=== PATIENT | male | born 1945 ===

== ENCOUNTER 2022-10-14 15:35 | Inpatient (IN) | payer OTHER ==
[~2022-10-14] VITALS: Ht 175.3 cm; Wt 68.0 kg
[2022-10-14 16:34] LABS: COVID AG,FIA SOURCE NASOPHARYNGEAL
[2022-10-14 16:38] LABS: APPEARANCE,URINE CLEAR (CLEAR); BILIRUBIN,URINE NEGATIVE (NEGATIVE); GLUCOSE, URINE (UA) >=1000 mg/dL (NEGATIVE); KETONES,URINE 40-60 mg/dL (NEGATIVE); LEUKOCYTE ESTERASE ,URINE NEGATIVE (NEGATIVE); NITRATE,URINE NEGATIVE (NEGATIVE); OCCULT BLOOD,URINE MODERATE (NEGATIVE); PH,URINE 5.5 (5.0-8.0); PROTEIN,URINE 30-70 mg/dL (NEGATIVE); SPECIFIC GRAVITIY, URINE 1.021 (1.003-1.030); UROBILINOGEN,URINE <=1.0 mg/dL (<=1.0)
[2022-10-14 16:39] LABS: BASOPHILS % (AUTO) 0.1 % (0.0-2.0); EOSINOPHILS % (AUTO) 0 % (1.0-6.0); HEMATOCRIT 48.5 % (41-53); HEMOGLOBIN 15.6 g/dL (13.5-17.5); LYMPHOCYTES # (AUTO) 0.3 K/uL (1.0-4.8); LYMPHOCYTES % (AUTO) 2.8 % (22.0-44.0); MEAN CORPUSCULAR HEMOGLOBIN 31.8 pg (26.0-34.0); MEAN CORPUSCULAR HGB CONC 32.3 G/dL (31.0-37.0); MEAN CORPUSCULAR VOLUME 98 fL (80-100); MONOCYTES # (AUTO) 0.7 K/uL (0.1-1.0); PLATELET COUNT (AUTO) 241 K/uL (150-450); RED BLOOD CELL COUNT(AUTO) 4.93 MIL/uL (4.50-5.90); RED CELL DISTRIBUTION WIDTH 14.9 % (11.5-14.5)
[2022-10-14 16:41] LABS: NEUTROPHILS % (AUTO) 90.1 % (40.0-70.0)
[2022-10-14 16:44] LABS: AMPHET/METH SCREEN,URINE NEGATIVE (NEGATIVE); BARBITURATE SCREEN, URINE NEGATIVE (NEGATIVE); BENZODIAZEPINES SCREEN,URINE NEGATIVE (NEGATIVE); CANNABINOID SCREEN,URINE NEGATIVE (NEGATIVE); COCAINE SCREEN,URINE NEGATIVE (NEGATIVE); METHADONE SCREEN, URINE NEGATIVE (NEGATIVE); OPIATE SCREEN,URINE NEGATIVE (NEGATIVE); PHENCYCLIDINE SCREEN,URINE NEGATIVE (NEGATIVE)
[2022-10-14 16:48] LABS: INR 1.1 (0.9-1.1); PROTHROMBIN TIME 11.4 SEC (9.4-11.6)
[2022-10-14 16:59] LABS: LACTIC ACID 1.8 mmol/L (0.4-2.0)
[2022-10-14 17:03] LABS: BACTERIA,URINE Few /HPF (None Seen); FINE GRANULAR CASTS,URINE 0-2 /LPF (None Seen); SQUAMOUS EPITHELIAL CELL,UR Few /LPF (None Seen); WBC,URINE 0-2 /HPF (0-5)
[2022-10-14 17:07] LABS: AMMONIA < 10 umol/L (11-32)
[2022-10-14 17:08] LABS: ALBUMIN 3.4 g/dL (3.4-5.0); BILIRUBIN,TOTAL 0.7 mg/dL (0.1-1.0); CALCIUM, TOTAL 9.6 mg/dL (8.8-10.5); CREATININE 2.34 mg/dL (0.60-1.30); MAGNESIUM 3.1 mg/dL (1.80-2.40); PHOSPHORUS 6.1 mg/dL (2.5-4.9); POTASSIUM 3.2 mmol/L (3.5-5.1); TOTAL PROTEIN, SERUM 7.4 g/dL (6.4-8.2)
[2022-10-14] MEDS ORDERED: SODIUM CHLORIDE 0.9% 1,000 ML IV ONE (17:15)
[2022-10-14] MEDS ORDERED: POTASSIUM CHL 10 MEQ/WATER 50 ML IV SCH (17:15)
[2022-10-14] MEDS ORDERED: POTASSIUM CHLORIDE 40 MEQ in SODIUM CHLORIDE 0.9% 1,000 ML IV ONE (17:30)
[2022-10-14 17:50] LABS: ACETONE,BLOOD 1:16 (NEGATIVE)
[2022-10-14 18:04] LABS: ACETAMINOPHEN < 2 mcg/mL (10-30)
[2022-10-14 18:21] LABS: SALICYLATE 3.7 mg/dL (2.8-20.0)
[2022-10-14] MEDS ORDERED: ONDANSETRON HCL 4 MG/2 ML VIAL IVP PRN (18:45)
[2022-10-14] MEDS ORDERED: POTASSIUM CHLORIDE 40 MEQ in SODIUM CHLORIDE 0.45% 1,000 ML IV PRN ×2 (18:45→19:00)
[2022-10-14] MEDS ORDERED: POTASSIUM CHL 20 MEQ/0.45% NS 1,000 ML IV PRN ×2 (18:45→19:00)
[2022-10-14] MEDS ORDERED: SODIUM CHLORIDE 0.45% 1,000 ML IV PRN ×2 (18:45→19:00)
[2022-10-14] MEDS ORDERED: DEXTROSE 50%-WATER 25 GM/50 ML SYRINGE IVP PRN ×2 (18:45→19:00)
[2022-10-14] MEDS ORDERED: SODIUM CHLORIDE 0.9% 1,000 ML IV SCH ×2 (18:45→19:00)
[2022-10-14] MEDS ORDERED: INSULIN REGULAR, HUMAN 100 UNITS/ML IVP PRN (19:00)
[2022-10-14] MEDS ORDERED: DEXTROSE 5%-0.45% SODIUM CHL 1,000 ML IV PRN (19:00)
[2022-10-14] MEDS ORDERED: INSULIN REGULAR, HUMAN 100 UNITS in SODIUM CHLORIDE 0.9% 99 ML IV PRN ×2 (19:00)
[2022-10-14 20:19] LABS: BASOPHILS % (AUTO) 0.4 % (0.0-2.0); EOSINOPHILS % (AUTO) 0 % (1.0-6.0); HEMATOCRIT 46.2 % (41-53); HEMOGLOBIN 15.1 g/dL (13.5-17.5); LYMPHOCYTES # (AUTO) 0.3 K/uL (1.0-4.8); LYMPHOCYTES % (AUTO) 2.7 % (22.0-44.0); MEAN CORPUSCULAR HEMOGLOBIN 32.1 pg (26.0-34.0); MEAN CORPUSCULAR HGB CONC 32.6 G/dL (31.0-37.0); MEAN CORPUSCULAR VOLUME 99 fL (80-100); MONOCYTES # (AUTO) 0.8 K/uL (0.1-1.0); MONOCYTES % (AUTO) 7.7 % (2.0-9.0); NEUTROPHILS # (AUTO) 9.2 K/uL (1.8-7.7); NEUTROPHILS % (AUTO) 89.2 % (40.0-70.0); PLATELET COUNT (AUTO) 220 K/uL (150-450); RED BLOOD CELL COUNT(AUTO) 4.69 MIL/uL (4.50-5.90); RED CELL DISTRIBUTION WIDTH 14.7 % (11.5-14.5)
[2022-10-14] MEDS ORDERED: VANCOMYCIN 1GM/WATER(PEG/NADA) 200 ML IV PRN (20:30)
[2022-10-14] MEDS ORDERED: INSULIN REGULAR, HUMAN 100 UNITS/ML IVP ONE (20:30)
[2022-10-14] MEDS: INSULIN REGULAR, HUMAN 100 UNITS in SODIUM CHLORIDE 0.9% 99 ML IV PRN ×2 (20:44)
[2022-10-14 20:46] LABS: GLUCOSE,POINT OF CARE 420 MG/DL (70-110)
[2022-10-14 20:54] LABS: ABG BASE EXCESS -17.8 mmol/L (-2.0-3.0); ABG CARBOXYHEMOGLOBIN 0.3 % (0.0-1.5); ABG HCO3 12.3 mmol/L (22.0-26.0); ABG METHEMOGLOBIN 0.3 % (0.0-1.5); ABG OXYGEN CONTENT 20.7 mL/dL (15.0-23.0); ABG OXYHEMOGLOBIN 96.4 % (94.0-100.0); ABG PCO2 32 mmHg (35-45); ABG TOTAL HEMOGLOBIN 15.2 G/dL (12.0-18.0); PO2, ARTERIAL BG 101.3 mmHg (66.0-74.0); SOURCE, BLOOD GAS ARTERIAL; TEMPERATURE, FAHRENHEIT, BG 98.6 FAHREN (96.0-98.6)
[2022-10-14 20:59] LABS: ABG PH 7.152 (7.35-7.450); SITE, BLOOD GAS LFT RADIAL
[2022-10-14] MEDS: DOCUSATE SODIUM 100 MG CAPSULE PO SCH (21:00)
[2022-10-14] MEDS ORDERED: VANCOMYCIN 1GM/WATER(PEG/NADA) 200 ML IV ONE (21:00)
[2022-10-14 21:16] LABS: CREATININE 2.29 mg/dL (0.60-1.30); POTASSIUM 3.8 mmol/L (3.5-5.1)
[2022-10-14] MEDS ORDERED: *CLINICAL-CEFEPIME DOSING CLINICAL ONE (21:45)
[2022-10-14] MEDS: INSULIN REGULAR, HUMAN 100 UNITS/ML IVP PRN ×2 (22:33→23:25)
[2022-10-14] MEDS ORDERED: CEFEPIME HCL 1 GM in DEXTROSE 5%-WATER 50 ML IV ONE (23:00)
[2022-10-14] MEDS ORDERED: SODIUM CHLORIDE 0.9% 250 ML IV ONE (23:01)
[2022-10-14 23:21] LABS: GLUCOSE,POINT OF CARE 376 MG/DL (70-110)
[2022-10-15] MEDS ORDERED: ASPIRIN 300 MG RECTAL SUPPOSITORY PR ONE
[2022-10-15] MEDS ORDERED: HEPARIN SODIUM,PORCINE 5,000 UNITS/ML VIAL IVP PRN ×2
[2022-10-15] MEDS ORDERED: HEPARIN SODIUM,PORCINE 5,000 UNITS/ML VIAL IVP ONE
[2022-10-15] MEDS: DEXTROSE 5%-0.45% SODIUM CHL 1,000 ML IV PRN ×2 (00:27→01:14)
[2022-10-15] MEDS: HEPARIN SODIUM 25000 UNITS/D5W 250 ML IV PRN ×3 (01:12→20:31)
[2022-10-15 01:18] LABS: BASOPHILS % (AUTO) 0.2 % (0.0-2.0); EOSINOPHILS % (AUTO) 0 % (1.0-6.0); HEMATOCRIT 43.5 % (41-53); HEMOGLOBIN 14.5 g/dL (13.5-17.5); LYMPHOCYTES # (AUTO) 0.4 K/uL (1.0-4.8); LYMPHOCYTES % (AUTO) 3.4 % (22.0-44.0); MEAN CORPUSCULAR HGB CONC 33.2 G/dL (31.0-37.0); MEAN CORPUSCULAR VOLUME 96 fL (80-100); MONOCYTES # (AUTO) 0.6 K/uL (0.1-1.0); MONOCYTES % (AUTO) 4.5 % (2.0-9.0); NEUTROPHILS # (AUTO) 11.6 K/uL (1.8-7.7); PLATELET COUNT (AUTO) 194 K/uL (150-450); RED BLOOD CELL COUNT(AUTO) 4.52 MIL/uL (4.50-5.90); RED CELL DISTRIBUTION WIDTH 14.4 % (11.5-14.5)
[2022-10-15 01:20] LABS: NEUTROPHILS % (AUTO) 91.9 % (40.0-70.0)
[2022-10-15 01:30] LABS: CREATININE 2.32 mg/dL (0.60-1.30); POTASSIUM 3.1 mmol/L (3.5-5.1)
[2022-10-15 01:33] LABS: INR 1.1 (0.9-1.1); PROTHROMBIN TIME 11.9 SEC (9.4-11.6)
[2022-10-15 02:21] LABS: GLUCOSE,POINT OF CARE 283 MG/DL (70-110)
[2022-10-15 02:21] LABS: GLUCOSE,POINT OF CARE 167 MG/DL (70-110)
[2022-10-15 02:21] LABS: GLUCOSE,POINT OF CARE 221 MG/DL (70-110)
[2022-10-15 04:26] LABS: GLUCOSE,POINT OF CARE 119 MG/DL (70-110)
[2022-10-15 04:26] LABS: GLUCOSE,POINT OF CARE 137 MG/DL (70-110)
[2022-10-15 04:31] LABS: GLUCOSE,POINT OF CARE 80 MG/DL (70-110)
[2022-10-15 05:55] LABS: BASOPHILS % (AUTO) 0.1 % (0.0-2.0); EOSINOPHILS % (AUTO) 0.1 % (1.0-6.0); HEMATOCRIT 43.8 % (41-53); HEMOGLOBIN 14.3 g/dL (13.5-17.5); LYMPHOCYTES # (AUTO) 0.3 K/uL (1.0-4.8); LYMPHOCYTES % (AUTO) 1.9 % (22.0-44.0); MEAN CORPUSCULAR HEMOGLOBIN 31.4 pg (26.0-34.0); MEAN CORPUSCULAR HGB CONC 32.6 G/dL (31.0-37.0); MEAN CORPUSCULAR VOLUME 96 fL (80-100); MONOCYTES # (AUTO) 1.8 K/uL (0.1-1.0); MONOCYTES % (AUTO) 11.4 % (2.0-9.0); NEUTROPHILS # (AUTO) 13.4 K/uL (1.8-7.7); PLATELET COUNT (AUTO) 196 K/uL (150-450); RED BLOOD CELL COUNT(AUTO) 4.55 MIL/uL (4.50-5.90); RED CELL DISTRIBUTION WIDTH 14.3 % (11.5-14.5)
[2022-10-15 06:07] LABS: ALBUMIN 2.9 g/dL (3.4-5.0); BILIRUBIN,TOTAL 0.4 mg/dL (0.1-1.0); CREATININE 2.5 mg/dL (0.60-1.30); MAGNESIUM 2.7 mg/dL (1.80-2.40); PHOSPHORUS 3.6 mg/dL (2.5-4.9); POTASSIUM 3.6 mmol/L (3.5-5.1); TOTAL PROTEIN, SERUM 6.2 g/dL (6.4-8.2)
[2022-10-15 06:14] LABS: NEUTROPHILS % (AUTO) 86.5 % (40.0-70.0)
[2022-10-15 06:36] LABS: GLUCOSE,POINT OF CARE 77 MG/DL (70-110)
[2022-10-15 06:36] LABS: GLUCOSE,POINT OF CARE 102 MG/DL (70-110)
[2022-10-15 06:36] LABS: GLUCOSE,POINT OF CARE 103 MG/DL (70-110)
[2022-10-15 07:56] LABS: GLUCOSE,POINT OF CARE 149 MG/DL (70-110)
[2022-10-15 08:00] VITALS: BP 124/71
[2022-10-15] MEDS ORDERED: VANCOMYCIN HCL 500 MG in DEXTROSE 5%-WATER 100 ML IV ONE (08:00)
[2022-10-15] MEDS ORDERED: HEPARIN SODIUM,PORCINE 5,000 UNITS/ML VIAL SQ SCH (08:00)
[2022-10-15 08:35] LABS: CALCIUM, TOTAL 8.8 mg/dL (8.8-10.5); CREATININE 2.57 mg/dL (0.60-1.30); POTASSIUM 3.8 mmol/L (3.5-5.1)
[2022-10-15] MEDS: DOCUSATE SODIUM 100 MG CAPSULE PO SCH ×2 (09:00→20:10)
[2022-10-15] MEDS: ASPIRIN 81 MG CHEWABLE TABLET PO SCH (09:00)
[2022-10-15] MEDS: METOPROLOL TARTRATE 25 MG TABLET PO SCH ×2 (09:00→20:10)
[2022-10-15] MEDS ORDERED: SODIUM CHLORIDE 0.45% 500 ML IV ONE (10:00)
[2022-10-15 12:00] VITALS: BP 106/60
[2022-10-15 12:45] LABS: CALCIUM, TOTAL 8.8 mg/dL (8.8-10.5); CREATININE 2.8 mg/dL (0.60-1.30); MAGNESIUM 2.7 mg/dL (1.80-2.40); PHOSPHORUS 4.7 mg/dL (2.5-4.9); POTASSIUM 4.2 mmol/L (3.5-5.1)
[2022-10-15] MEDS: INSULIN REGULAR, HUMAN 100 UNITS in SODIUM CHLORIDE 0.9% 99 ML IV PRN ×2 (14:08)
[2022-10-15 16:00] VITALS: BP 124/71
[2022-10-15 16:52] LABS: CALCIUM, TOTAL 8.4 mg/dL (8.8-10.5); CREATININE 3.26 mg/dL (0.60-1.30); POTASSIUM 4.6 mmol/L (3.5-5.1)
[2022-10-15] MEDS ORDERED: DEXTROSE 50%-WATER 25 GM/50 ML SYRINGE IVP PRN (17:30)
[2022-10-15 19:26] LABS: GLUCOSE,POINT OF CARE 90 MG/DL (70-110)
[2022-10-15 19:26] LABS: GLUCOSE,POINT OF CARE 148 MG/DL (70-110)
[2022-10-15 19:26] LABS: GLUCOSE,POINT OF CARE 60 MG/DL (70-110)
[2022-10-15 19:26] LABS: GLUCOSE,POINT OF CARE 103 MG/DL (70-110)
[2022-10-15 19:26] LABS: GLUCOSE,POINT OF CARE 143 MG/DL (70-110)
[2022-10-15 19:26] LABS: GLUCOSE,POINT OF CARE 133 MG/DL (70-110)
[2022-10-15 19:26] LABS: GLUCOSE,POINT OF CARE 126 MG/DL (70-110)
[2022-10-15 19:26] LABS: GLUCOSE,POINT OF CARE 55 MG/DL (70-110)
[2022-10-15 19:31] LABS: GLUCOSE,POINT OF CARE 101 MG/DL (70-110)
[2022-10-15 19:31] LABS: GLUCOSE,POINT OF CARE 134 MG/DL (70-110)
[2022-10-15 20:00] VITALS: BP 124/70
[2022-10-15] MEDS: ATORVASTATIN CALCIUM 40 MG TABLET PO SCH ×2 (20:10)
[2022-10-15] MEDS: SODIUM CHLORIDE 0.45% 1,000 ML IV SCH (20:26)
[2022-10-15] MEDS: INSULIN GLARGINE,HUM.REC.ANLOG 100 UNITS/ML SQ SCH (21:01)
[2022-10-15 22:17] LABS: CALCIUM, TOTAL 8.6 mg/dL (8.8-10.5); CREATININE 3.13 mg/dL (0.60-1.30); POTASSIUM 4.9 mmol/L (3.5-5.1)
[2022-10-15 23:16] LABS: GLUCOSE,POINT OF CARE 132 MG/DL (70-110)
[2022-10-15 23:16] LABS: GLUCOSE,POINT OF CARE 121 MG/DL (70-110)
[2022-10-15] MEDS: CEFEPIME HCL 1 GM in DEXTROSE 5%-WATER 50 ML IV SCH (23:30)
[2022-10-16] VITALS: BP 117/57
[2022-10-16] MEDS: INSULIN LISPRO 100 UNITS/ML SQ PRN ×5 (00:31→18:44)
[2022-10-16] MEDS: SODIUM CHLORIDE 0.45% 1,000 ML IV SCH ×2 (03:04→16:35)
[2022-10-16 03:16] LABS: GLUCOSE,POINT OF CARE 151 MG/DL (70-110)
[2022-10-16 04:00] VITALS: BP 121/79
[2022-10-16 04:16] LABS: GLUCOSE,POINT OF CARE 174 MG/DL (70-110)
[2022-10-16] MEDS ORDERED: SODIUM CHLORIDE 0.9% 250 ML IV ONE (04:40)
[2022-10-16 06:10] LABS: ALBUMIN 2.4 g/dL (3.4-5.0); BILIRUBIN,TOTAL 0.4 mg/dL (0.1-1.0); CALCIUM, TOTAL 8.8 mg/dL (8.8-10.5); CREATININE 2.72 mg/dL (0.60-1.30); MAGNESIUM 2.6 mg/dL (1.80-2.40); PHOSPHORUS 2.3 mg/dL (2.5-4.9); POTASSIUM 4.3 mmol/L (3.5-5.1); VANCOMYCIN,RANDOM 14.1 mcg/mL (25.0-50.0)
[2022-10-16 08:00] VITALS: BP 131/54
[2022-10-16 08:21] LABS: GLUCOSE,POINT OF CARE 128 MG/DL (70-110)
[2022-10-16] MEDS: DOCUSATE SODIUM 100 MG CAPSULE PO SCH ×2 (09:00→21:00)
[2022-10-16] MEDS: ASPIRIN 81 MG CHEWABLE TABLET PO SCH (09:00)
[2022-10-16] MEDS: METOPROLOL TARTRATE 25 MG TABLET PO SCH ×2 (09:00→21:00)
[2022-10-16] MEDS: VANCOMYCIN HCL 500 MG in DEXTROSE 5%-WATER 100 ML IV SCH (11:58)
[2022-10-16 12:00] VITALS: BP 126/50
[2022-10-16 12:11] LABS: GLUCOSE,POINT OF CARE 187 MG/DL (70-110)
[2022-10-16 16:00] VITALS: BP 106/52
[2022-10-16 17:21] LABS: GLUCOSE,POINT OF CARE 177 MG/DL (70-110)
[2022-10-16 17:39] LABS: CALCIUM, TOTAL 8.5 mg/dL (8.8-10.5); CREATININE 2.63 mg/dL (0.60-1.30); MAGNESIUM 2.5 mg/dL (1.80-2.40); PHOSPHORUS 4.2 mg/dL (2.5-4.9)
[2022-10-16 20:00] VITALS: BP 129/64
[2022-10-16] MEDS: ATORVASTATIN CALCIUM 40 MG TABLET PO SCH (21:00)
[2022-10-16] MEDS: INSULIN GLARGINE,HUM.REC.ANLOG 100 UNITS/ML SQ SCH (22:00)
[2022-10-16 22:16] LABS: GLUCOSE,POINT OF CARE 149 MG/DL (70-110)
[2022-10-16 23:11] LABS: GLUCOSE,POINT OF CARE 158 MG/DL (70-110)
[2022-10-16] MEDS: CEFEPIME HCL 1 GM in DEXTROSE 5%-WATER 50 ML IV SCH (23:56)
[2022-10-17] VITALS (11 sets, daily range): BP systolic 82–117; BP diastolic 37–70
[2022-10-17] MEDS: INSULIN LISPRO 100 UNITS/ML SQ PRN ×2 (00:10→14:48)
[2022-10-17] MEDS: SODIUM CHLORIDE 0.45% 1,000 ML IV SCH ×2 (01:37→17:21)
[2022-10-17 05:41] LABS: GLUCOSE,POINT OF CARE 185 MG/DL (70-110)
[2022-10-17 05:41] LABS: GLUCOSE,POINT OF CARE 177 MG/DL (70-110)
[2022-10-17 06:00] LABS: BASOPHILS % (AUTO) 0.2 % (0.0-2.0); EOSINOPHILS % (AUTO) 0 % (1.0-6.0); HEMATOCRIT 39.8 % (41-53); HEMOGLOBIN 12.5 g/dL (13.5-17.5); LYMPHOCYTES # (AUTO) 0.3 K/uL (1.0-4.8); LYMPHOCYTES % (AUTO) 2.8 % (22.0-44.0); MEAN CORPUSCULAR HEMOGLOBIN 31.4 pg (26.0-34.0); MEAN CORPUSCULAR HGB CONC 31.4 G/dL (31.0-37.0); MEAN CORPUSCULAR VOLUME 100 fL (80-100); MONOCYTES # (AUTO) 0.6 K/uL (0.1-1.0); MONOCYTES % (AUTO) 4.6 % (2.0-9.0); NEUTROPHILS # (AUTO) 11.1 K/uL (1.8-7.7); PLATELET COUNT (AUTO) 132 K/uL (150-450); RED BLOOD CELL COUNT(AUTO) 3.98 MIL/uL (4.50-5.90); RED CELL DISTRIBUTION WIDTH 15.6 % (11.5-14.5)
[2022-10-17] MEDS ORDERED: SUCCINYLCHOLINE CHLORIDE 20 MG/ML 10 ML VIAL ONE (06:06)
[2022-10-17 06:07] LABS: NEUTROPHILS % (AUTO) 92.4 % (40.0-70.0)
[2022-10-17] MEDS ORDERED: NOREPINEPHRINE 8 MG/D5%-WATER 250 ML IV PRN (06:15)
[2022-10-17 06:25] LABS: CREATININE 3.26 mg/dL (0.60-1.30)
[2022-10-17 06:33] LABS: POTASSIUM 6.9 mmol/L (3.5-5.1)
[2022-10-17] MEDS ORDERED: INSULIN REGULAR, HUMAN 100 UNITS/ML IVP ONE (06:45)
[2022-10-17] MEDS ORDERED: SODIUM ZIRCONIUM CYCLOSILICATE 5 GM POWDER PACKET PO ONE (06:45)
[2022-10-17] MEDS ORDERED: DEXTROSE 50%-WATER 25 GM/50 ML SYRINGE IVP ONE (06:45)
[2022-10-17 06:59] LABS: PHOSPHORUS 9.7 mg/dL (2.5-4.9)
[2022-10-17] MEDS: PROPOFOL 1000 MG/ISO-OSM 100 ML IV PRN ×2 (08:36→20:38)
[2022-10-17] MEDS: DOCUSATE SODIUM 100 MG CAPSULE PO SCH ×2 (09:00→21:13)
[2022-10-17] MEDS: METOPROLOL TARTRATE 25 MG TABLET PO SCH ×2 (09:00→21:00)
[2022-10-17 09:49] LABS: CALCIUM, TOTAL 8.6 mg/dL (8.8-10.5); CREATININE 3.31 mg/dL (0.60-1.30); POTASSIUM 5.4 mmol/L (3.5-5.1)
[2022-10-17 09:55] LABS: BILIRUBIN,TOTAL 0.4 mg/dL (0.1-1.0); MAGNESIUM 2.7 mg/dL (1.80-2.40); TOTAL PROTEIN, SERUM 5.5 g/dL (6.4-8.2)
[2022-10-17 10:19] LABS: ABG BASE EXCESS -10.2 mmol/L (-2.0-3.0); ABG CARBOXYHEMOGLOBIN 0.3 % (0.0-1.5); ABG HCO3 17.1 mmol/L (22.0-26.0); ABG METHEMOGLOBIN 0.3 % (0.0-1.5); ABG OXYGEN CONTENT 18.5 mL/dL (15.0-23.0); ABG OXYGEN SATURATION 99.8 % (95.0-98.0); ABG OXYHEMOGLOBIN 99.2 % (94.0-100.0); ABG PCO2 35 mmHg (35-45); ABG PH 7.291 (7.35-7.450); ABG TOTAL HEMOGLOBIN 12.5 G/dL (12.0-18.0); PO2, ARTERIAL BG 397.5 mmHg (66.0-74.0); SOURCE, BLOOD GAS ARTERIAL; TEMPERATURE, FAHRENHEIT, BG 97.1 FAHREN (96.0-98.6)
[2022-10-17 10:21] LABS: O2 DEVICE,BLOOD GAS VENTILATOR (ROOM AIR); PEEP,BG 5 cm H2O; SITE, BLOOD GAS LFT RADIAL; SPONTANEOUS VT, BG 421 ml; VT, ABG 450 ml
[2022-10-17] MEDS: ASPIRIN 81 MG CHEWABLE TABLET PO SCH (10:53)
[2022-10-17] MEDS: VANCOMYCIN HCL 500 MG in DEXTROSE 5%-WATER 100 ML IV SCH (10:54)
[2022-10-17] MEDS ORDERED: VANCOMYCIN 1GM/WATER(PEG/NADA) 200 ML IV PRN (12:15)
[2022-10-17] MEDS ORDERED: ETOMIDATE 2 MG/ML 10 ML VIAL IV ONE (16:45)
[2022-10-17 18:01] LABS: GLUCOSE,POINT OF CARE 200 MG/DL (70-110)
[2022-10-17] MEDS: ATORVASTATIN CALCIUM 40 MG TABLET PO SCH (21:14)
[2022-10-17] MEDS: INSULIN GLARGINE,HUM.REC.ANLOG 100 UNITS/ML SQ SCH (21:19)
[2022-10-17 21:46] LABS: GLUCOSE,POINT OF CARE 165 MG/DL (70-110)
[2022-10-17] MEDS: CEFEPIME HCL 1 GM in DEXTROSE 5%-WATER 50 ML IV SCH (23:33)
[2022-10-18] VITALS (12 sets, daily range): BP systolic 101–167; BP diastolic 52–94
[2022-10-18] MEDS: INSULIN LISPRO 100 UNITS/ML SQ PRN ×2 (00:30→06:42)
[2022-10-18 01:46] LABS: GLUCOSE,POINT OF CARE 179 MG/DL (70-110)
[2022-10-18] MEDS ORDERED: SODIUM CHLORIDE 0.9% 250 ML IV ONE (05:42)
[2022-10-18] MEDS: SODIUM CHLORIDE 0.45% 1,000 ML IV SCH ×2 (05:48→14:02)
[2022-10-18 06:04] LABS: BASOPHILS % (AUTO) 0.1 % (0.0-2.0); EOSINOPHILS % (AUTO) 0.1 % (1.0-6.0); HEMATOCRIT 35.5 % (41-53); HEMOGLOBIN 11.8 g/dL (13.5-17.5); LYMPHOCYTES # (AUTO) 0.6 K/uL (1.0-4.8); LYMPHOCYTES % (AUTO) 5.4 % (22.0-44.0); MEAN CORPUSCULAR HGB CONC 33.3 G/dL (31.0-37.0); MEAN CORPUSCULAR VOLUME 96 fL (80-100); MONOCYTES # (AUTO) 0.7 K/uL (0.1-1.0); MONOCYTES % (AUTO) 6.5 % (2.0-9.0); NEUTROPHILS # (AUTO) 9.1 K/uL (1.8-7.7); RED BLOOD CELL COUNT(AUTO) 3.69 MIL/uL (4.50-5.90); RED CELL DISTRIBUTION WIDTH 14.7 % (11.5-14.5)
[2022-10-18] MEDS ORDERED: SODIUM CHLORIDE 0.9% 2,000 ML ONE (06:06)
[2022-10-18 06:09] LABS: CALCIUM, TOTAL 8.6 mg/dL (8.8-10.5); CREATININE 2.42 mg/dL (0.60-1.30); POTASSIUM 4.1 mmol/L (3.5-5.1); VANCOMYCIN,RANDOM 10.4 mcg/mL (25.0-50.0)
[2022-10-18 06:21] LABS: NEUTROPHILS % (AUTO) 87.9 % (40.0-70.0)
[2022-10-18 06:22] LABS: PLATELET COUNT (AUTO) 99 K/uL (150-450)
[2022-10-18 07:01] LABS: GLUCOSE,POINT OF CARE 168 MG/DL (70-110)
[2022-10-18] MEDS ORDERED: SODIUM CITRATE 4% CATH FLUSH 5 ML SYRINGE IVCATH ONE ×2 (08:45)
[2022-10-18] MEDS ORDERED: HEPARIN SODIUM,PORCINE 1,000 UNITS/ML VIAL IVCATH ONE ×2 (08:45)
[2022-10-18] MEDS: METOPROLOL TARTRATE 25 MG TABLET PO SCH ×2 (08:56→20:40)
[2022-10-18] MEDS: ASPIRIN 81 MG CHEWABLE TABLET PO SCH (08:56)
[2022-10-18] MEDS: DOCUSATE SODIUM 100 MG CAPSULE PO SCH ×2 (08:56→20:18)
[2022-10-18] MEDS ORDERED: VANCOMYCIN 1GM/WATER(PEG/NADA) 200 ML IV ONE (11:00)
[2022-10-18] MEDS ORDERED: HEPARIN SODIUM,PORCINE 1,000 UNITS/ML VIAL IVP ONE (11:49)
[2022-10-18 14:41] LABS: GLUCOSE,POINT OF CARE 107 MG/DL (70-110)
[2022-10-18] MEDS: PROPOFOL 1000 MG/ISO-OSM 100 ML IV PRN (15:14)
[2022-10-18] MEDS: HEPARIN SODIUM,PORCINE 5,000 UNITS/ML VIAL SQ SCH ×2 (16:52→23:33)
[2022-10-18] MEDS: CEFEPIME HCL 0.5 GM in DEXTROSE 5%-WATER 50 ML IV SCH (18:54)
[2022-10-18 20:11] LABS: GLUCOSE,POINT OF CARE 112 MG/DL (70-110)
[2022-10-18] MEDS: ATORVASTATIN CALCIUM 40 MG TABLET PO SCH (20:18)
[2022-10-18] MEDS: ETHYL ALCOHOL 62% ANTISEPTIC NASAL SANITIZER 0.6 ML AMPUL NASAL SCH (20:18)
[2022-10-18] MEDS: INSULIN GLARGINE,HUM.REC.ANLOG 100 UNITS/ML SQ SCH (20:19)
[2022-10-18 23:16] LABS: GLUCOSE,POINT OF CARE 122 MG/DL (70-110)
[2022-10-19] VITALS: BP 116/64
[2022-10-19] MEDS: PROPOFOL 1000 MG/ISO-OSM 100 ML IV PRN ×2 (00:53→13:33)
[2022-10-19 01:41] LABS: GLUCOSE,POINT OF CARE 111 MG/DL (70-110)
[2022-10-19 04:00] VITALS: BP 106/52
[2022-10-19] MEDS: SODIUM CHLORIDE 0.45% 1,000 ML IV SCH (04:25)
[2022-10-19 06:30] LABS: MAGNESIUM 2.4 mg/dL (1.80-2.40); PHOSPHORUS 2.2 mg/dL (2.5-4.9)
[2022-10-19 06:52] LABS: CALCIUM, TOTAL 8.5 mg/dL (8.8-10.5); CREATININE 1.69 mg/dL (0.60-1.30); POTASSIUM 3.3 mmol/L (3.5-5.1)
[2022-10-19 07:06] LABS: GLUCOSE,POINT OF CARE 104 MG/DL (70-110)
[2022-10-19 08:00] VITALS: BP 135/68
[2022-10-19] MEDS: ASPIRIN 81 MG CHEWABLE TABLET PO SCH (08:21)
[2022-10-19] MEDS: DOCUSATE SODIUM 100 MG CAPSULE PO SCH ×2 (08:21→20:26)
[2022-10-19] MEDS: HEPARIN SODIUM,PORCINE 5,000 UNITS/ML VIAL SQ SCH ×2 (08:21→17:00)
[2022-10-19] MEDS: ETHYL ALCOHOL 62% ANTISEPTIC NASAL SANITIZER 0.6 ML AMPUL NASAL SCH ×2 (08:21→20:26)
[2022-10-19] MEDS: METOPROLOL TARTRATE 25 MG TABLET PO SCH ×2 (08:21→20:26)
[2022-10-19 10:52] LABS: ABG CARBOXYHEMOGLOBIN 0.3 % (0.0-1.5); ABG HCO3 24.3 mmol/L (22.0-26.0); ABG METHEMOGLOBIN 0.3 % (0.0-1.5); ABG OXYGEN CONTENT 16.3 mL/dL (15.0-23.0); ABG OXYGEN SATURATION 98.2 % (95.0-98.0); ABG OXYHEMOGLOBIN 97.6 % (94.0-100.0); ABG PCO2 30 mmHg (35-45); ABG TOTAL HEMOGLOBIN 11.8 G/dL (12.0-18.0); PO2, ARTERIAL BG 104.4 mmHg (75.0-83.0); SOURCE, BLOOD GAS ARTERIAL; TEMPERATURE, FAHRENHEIT, BG 98.7 FAHREN (96.0-98.6)
[2022-10-19 10:53] LABS: ABG A-A DIFF O2 146.3 mmHg (10-20.0); CPAP, BG 5 cm H2O; O2 DEVICE,BLOOD GAS VENTILATOR (ROOM AIR); PRESSURE SUPPORT, BG 8 cm H2O; SITE, BLOOD GAS LFT RADIAL; SPONTANEOUS VT, BG 763 ml; VENT MODE, BG CPAP (ROOM AIR)
[2022-10-19 12:00] VITALS: BP 96/54
[2022-10-19 15:06] LABS: GLUCOSE,POINT OF CARE 123 MG/DL (70-110)
[2022-10-19 16:00] VITALS: BP 141/52
[2022-10-19] MEDS: CEFEPIME HCL 0.5 GM in DEXTROSE 5%-WATER 50 ML IV SCH (17:01)
[2022-10-19 17:32] LABS: CALCIUM, TOTAL 8.4 mg/dL (8.8-10.5); CREATININE 1.65 mg/dL (0.60-1.30); POTASSIUM 3.1 mmol/L (3.5-5.1)
[2022-10-19 18:51] LABS: GLUCOSE,POINT OF CARE 120 MG/DL (70-110)
[2022-10-19 20:00] VITALS: BP 108/57
[2022-10-19] MEDS: POTASSIUM CHL 10 MEQ/WATER 50 ML IV SCH ×2 (20:26→21:42)
[2022-10-19] MEDS: ATORVASTATIN CALCIUM 40 MG TABLET PO SCH (20:26)
[2022-10-19] MEDS: INSULIN GLARGINE,HUM.REC.ANLOG 100 UNITS/ML SQ SCH (20:38)
[2022-10-19] MEDS: INSULIN LISPRO 100 UNITS/ML SQ PRN (20:39)
[2022-10-19] MEDS: DEXMEDETOMIDINE HCL 400 MCG in SODIUM CHLORIDE 0.9% 96 ML IV PRN (20:45)
[2022-10-20] VITALS: BP 122/68
[2022-10-20 00:41] LABS: GLUCOSE,POINT OF CARE 145 MG/DL (70-110)
[2022-10-20 04:00] VITALS: BP 95/51
[2022-10-20 06:34] LABS: CALCIUM, TOTAL 8.4 mg/dL (8.8-10.5); CREATININE 1.71 mg/dL (0.60-1.30); POTASSIUM 3.3 mmol/L (3.5-5.1); VANCOMYCIN,RANDOM 11.5 mcg/mL (25.0-50.0)
[2022-10-20 06:41] LABS: GLUCOSE,POINT OF CARE 126 MG/DL (70-110)
[2022-10-20 08:00] VITALS: BP 108/65
[2022-10-20] MEDS: DOCUSATE SODIUM 100 MG CAPSULE PO SCH (08:08)
[2022-10-20] MEDS: HEPARIN SODIUM,PORCINE 5,000 UNITS/ML VIAL SQ SCH ×3 (08:08→16:56)
[2022-10-20] MEDS: ETHYL ALCOHOL 62% ANTISEPTIC NASAL SANITIZER 0.6 ML AMPUL NASAL SCH (08:08)
[2022-10-20] MEDS: METOPROLOL TARTRATE 25 MG TABLET PO SCH (08:08)
[2022-10-20] MEDS: ASPIRIN 81 MG CHEWABLE TABLET PO SCH (08:09)
[2022-10-20 08:22] LABS: MAGNESIUM 2.3 mg/dL (1.80-2.40); PHOSPHORUS 2.7 mg/dL (2.5-4.9)
[2022-10-20] MEDS ORDERED: POTASSIUM CHL 10 MEQ/WATER 50 ML IV ONE (10:00)
[2022-10-20 11:18] LABS: ABG BASE EXCESS -1.7 mmol/L (-2.0-3.0); ABG CARBOXYHEMOGLOBIN 0.3 % (0.0-1.5); ABG HCO3 23.7 mmol/L (22.0-26.0); ABG METHEMOGLOBIN 0.3 % (0.0-1.5); ABG OXYGEN CONTENT 16.5 mL/dL (15.0-23.0); ABG OXYGEN SATURATION 97.2 % (95.0-98.0); ABG OXYHEMOGLOBIN 96.6 % (94.0-100.0); ABG PCO2 32 mmHg (35-45); ABG PH 7.462 (7.35-7.450); ABG TOTAL HEMOGLOBIN 12.1 G/dL (12.0-18.0); PO2, ARTERIAL BG 87.2 mmHg (75.0-83.0); SOURCE, BLOOD GAS ARTERIAL; TEMPERATURE, FAHRENHEIT, BG 98.6 FAHREN (96.0-98.6)
[2022-10-20 11:19] LABS: ABG A-A DIFF O2 125.6 mmHg (10-20.0); CPAP, BG 0 cm H2O; O2 DEVICE,BLOOD GAS VENTILATOR (ROOM AIR); PRESSURE SUPPORT, BG 8 cm H2O; SITE, BLOOD GAS LFT RADIAL; SPONTANEOUS VT, BG 550 ml; VENT MODE, BG CPAP (ROOM AIR)
[2022-10-20] MEDS: DEXMEDETOMIDINE HCL 400 MCG in SODIUM CHLORIDE 0.9% 96 ML IV PRN ×2 (11:30→17:29)
[2022-10-20] MEDS ORDERED: MICONAZOLE NITRATE 2% 142 GM CREAM [BAZA] TP SCH (11:45)
[2022-10-20 12:00] VITALS: BP 102/58
[2022-10-20] MEDS ORDERED: VANCOMYCIN HCL 1 GM in DEXTROSE 5%-WATER 250 ML IV ONE (14:00)
[2022-10-20] MEDS ORDERED: SODIUM CHLORIDE 0.9% 250 ML IV ONE (14:06)
[2022-10-20 17:29] VITALS: BP 105/65
[2022-10-20 17:47] LABS: GLUCOSE,POINT OF CARE 157 MG/DL (70-110)
[2022-10-20 17:55] LABS: GLUCOSE,POINT OF CARE 177 MG/DL (70-110)
== END 2022-10-20 18:30 | disposition short-term general hospital (02) | DRG 871 ==
LOC: EMS 15:49 → ICU 18:59 → EDBD 18:59
PROVIDERS: ADMIT Internal Medicine; ATTEND Internal Medicine
PROC: 5A1945Z Respiratory Ventilation, 24-96 Consecutive Hours (ICD-10-PCS; principal; 2022-10-17)
PROC: 0BH17EZ Insertion of Endotracheal Airway into Trachea, Via Natural or Artificial Opening (ICD-10-PCS; 2022-10-17)
PROC: 5A1D70Z Performance of Urinary Filtration, Intermittent, Less than 6 Hours Per Day (ICD-10-PCS; 2022-10-17)
PROC: 5A1D70Z Performance of Urinary Filtration, Intermittent, Less than 6 Hours Per Day (ICD-10-PCS; 2022-10-18)
PROC: 5A1D70Z Performance of Urinary Filtration, Intermittent, Less than 6 Hours Per Day (ICD-10-PCS; 2022-10-18)
DX: A41.9 Sepsis, unspecified organism (principal); E11.10 Type 2 diabetes mellitus with ketoacidosis without coma; L89.154 Pressure ulcer of sacral region, stage 4; N17.0 Acute kidney failure with tubular necrosis; I21.4 Non-ST elevation (NSTEMI) myocardial infarction; J96.01 Acute respiratory failure with hypoxia; G93.41 Metabolic encephalopathy; E87.0 Hyperosmolality and hypernatremia; M62.82 Rhabdomyolysis; G93.89 Other specified disorders of brain; E87.6 Hypokalemia; E11.22 Type 2 diabetes mellitus with diabetic chronic kidney disease; N18.9 Chronic kidney disease, unspecified; D64.9 Anemia, unspecified; E87.5 Hyperkalemia; L30.8 Other specified dermatitis; Z95.1 Presence of aortocoronary bypass graft; Z95.3 Presence of xenogenic heart valve; S90.32XA Contusion of left foot, initial encounter; S90.31XA Contusion of right foot, initial encounter; X58.XXXA Exposure to other specified factors, initial encounter; Y93.89 Activity, other specified; Y92.89 Other specified places as the place of occurrence of the external cause; Y99.8 Other external cause status; B35.1 Tinea unguium
CPT/HCPCS: 36600; 51702; 70450; 70551; 71045; 72125; 76770; 80048; 80053; 80202; 80307; 81001; 82009; 82140; 82550; 82805; 82962; 83036; 83605; 83735; 83880; 83930; 84100; 84145; 84484; 85025; 85610; 85730; 87040; 87070; 87081; 87205; 87340; 90935; 93005; 93306; 94002; 94003; 99291; G0378; G0480; G0481; J0330; J0692; J1644; J1815; J2704; J3370; J3480; J3490; J7030; J7050; J7060; Q9967; 36415-L1; 36415-TC